=== PATIENT | female | born 1985 | race Caucasian/White ===

== ENCOUNTER → 2018-06-01 | Outpatient (CLI) | payer BC ==
[~2018-06-01] MED LIST: CEPHALEXIN500 M1 PO; MOTRIN 600600 MG/TAB PO; P-D NATAL W/FOL1 TAB PO; PERCOCET 325 MG1 TA2 PO
== END ==
LOC: COL.RAD 08:46
DX: N97.9 Female infertility, unspecified (principal)
CPT/HCPCS: Q9967

== ENCOUNTER 2018-11-03 10:53 | Day surgery (SDC) | payer BC ==
[~2018-11-03] VITALS: Ht 170.2 cm; Wt 64.1 kg
[2018-11-03 17:17] VITALS: BP 116/59; PULSE 78; TEMP 98.8
--- NOTE | 2018-11-03 17:27 | NUR ---
TO RM AT 1655- CALL LIGHT IN REACH AT BEDSIDE.
--- NOTE | 2018-11-03 18:01 | NUR ---
VIKA SHERMAN POLISHER ALUMINUM INTO TALK WITH PATIENT UP TO BATHROOM AND TOLERATED WELL RECEIVED NEW WARM BLANKET
--- NOTE | 2018-11-03 19:30 | NUR ---
To room 321-2 via gurney from PACU. Oriented to room and policy. Denies question. VS stable. Bleeding scant on OB pad. Denies pain. Very teary sitting with spouse. Discussed pain control. General diet provide. Denies N/V. Up to bathroom-voided without difficulty. Will monitor vitals and intake for meeting discharge criteria. Call light within reach. WIll monitor.
[2018-11-03] MEDS ORDERED: IBU600 MG PO (19:36)
[2018-11-03 19:45] VITALS: BP 112/63; PULSE 71; TEMP 98
[2018-11-03 20:00] VITALS: BP 109/56; PULSE 71
[2018-11-03 20:15] VITALS: BP 124/58; PULSE 100
[2018-11-03 20:30] VITALS: BP 136/55; PULSE 83; TEMP 97.7
[2018-11-03 21:00] VITALS: BP 108/64; PULSE 75; TEMP 98
--- NOTE | 2018-11-03 21:00 | NUR ---
Tolerated general diet. Voiding without difficulty. Denies pain. States she is ready to be discharged. DIscharge instructions given both verbal and handwritten. Discussed s/s of infection, f/u appt, home medications and activity. Denies questions or concerns. IV DCd. Cath intact. Escorted to ER doors via wheelchair. Discharged home with spouse in stable condition.
== END 2018-11-03 21:00 ==
LOC: SDCO 10:53 → SURG 19:30 → SDCO 21:00
DX: O02.1 Missed abortion (principal)
CPT/HCPCS: OP; J1885; J2405; J2704; J3010